=== PATIENT | female | born 1975 | race Caucasian/White ===

== ENCOUNTER 2019-12-19 07:55 | Emergency (ER) | payer OTHER ==
[2019-12-19 08:10] VITALS: BP 147/92; PULSE 71
--- NOTE | 2019-12-19 08:15 | EDM.PDOC ---
ED HPI GENERAL MEDICAL PROBLEM - General Chief Complaint: Neurological Problem Stated Complaint: DIZZY Time Seen by Provider: 12/19/19 08:14 Source of Information: Reports: Patient History Limitations: Reports: No Limitations - History of Present Illness INITIAL COMMENTS - FREE TEXT/NARRATIVE: pt arrived with a history of geting up this am and feeling like she was going to pass out. She did not feel like the room was whirling. She has had vertigo in the past and this did seem different. Onset: Today, Sudden, Other (pt got up with the symptoms. ) Duration: Hour(s): Location: Reports: Head, Other (pt has no visual symptoms. she has a low grade headache/ ) Associated Symptoms: Reports: Diaphoresis, Weakness, Other (pt felt like she was going to pass out. ) - Related Data Allergies Allergy/AdvReac Type Severity Reaction Status Date / Time amoxicillin Allergy Cannot Verified 12/22/19 08:41 Remember erythromycin lactobionate Allergy Rash Verified 12/22/19 08:41 [From Erythrocin] Penicillins Allergy Rash Verified 12/22/19 08:41 Home Meds: Home Meds Ibuprofen [Motrin] 600 mg PO ASDIRECTED PRN 02/12/15 [History] Meclizine HCl 1 tab PO ASDIRECTED PRN 12/19/19 [History] ED ROS GENERAL - Review of Systems Review Of Systems: See Below Constitutional: Reports: Weakness, Diaphoresis HEENT: Reports: No Symptoms Respiratory: Reports: No Symptoms Cardiovascular: Reports: Other (pt has not had chest pain. ) Endocrine: Reports: No Symptoms GI/Abdominal: Reports: No Symptoms : Reports: No Symptoms Musculoskeletal: Reports: No Symptoms Skin: Reports: No Symptoms Neurological: Reports: Dizziness, Other (pt had the sensation of passing out. ) ED EXAM, NEURO - Physical Exam Exam: See Below Text/Narrative:: pt arrived feeling weak and like she was going to pass out. She was very diaophoretic at the time. She did not have chest pain. Exam Limited By: No Limitations General Appearance: Alert, Anxious, Other (pale appearing. pupils are equal and reactive. ) Ears: Normal TMs Nose: Normal Inspection Throat/Mouth: Normal Inspection Head Exam: Atraumatic Neck: Normal Inspection Respiratory/Chest: No Respiratory Distress Cardiovascular: Regular Rate, Rhythm GI/Abdominal: Soft, Non-Tender (Female) Exam: Deferred Rectal (Female) Exam: Deferred Neurological: Alert Back Exam: Normal Inspection Extremities: Normal Inspection Psychiatric: Normal Affect Course - Vital Signs Last Recorded V/S: Last Vital Signs Temp 36.2 C 12/19/19 08:09 Pulse 71 12/19/19 08:09 Resp 16 12/19/19 08:09 BP 147/92 H 12/19/19 08:09 Pulse Ox 99 12/19/19 08:09 Orthostatic Blood Pressure [ 129/88 Standing] Orthostatic Blood Pressure [ 143/92 Sitting] Orthostatic Blood Pressure [ 140/82 Supine] - Orders/Labs/Meds Labs: Laboratory Tests 12/19/19 12/19/19 12/19/19 Range/Units 08:19 08:19 08:24 WBC 7.7 (4.5-11.0) K/uL RBC 4.46 (3.30-5.50) M/uL Hgb 14.3 (12.0-15.0) g/dL Hct 43.9 (36.0-48.0) % MCV 98 (80-98) fL MCH 32 H (27-31) pg MCHC 33 (32-36) % Plt Count 261 (150-400) K/uL Neut % (Auto) 56 (36-66) % Lymph % (Auto) 33 (24-44) % [place] % (Auto) 8 H (2-6) % Eos % (Auto) 2 (2-4) % Baso % (Auto) 1 (0-1) % Sodium 138 L (140-148) mmol/L Potassium 4.4 (3.6-5.2) mmol/L Chloride 105 (100-108) mmol/L Carbon Dioxide 23 (21-32) mmol/L Anion Gap 14.4 H (5.0-14.0) mmol/L BUN 17 (7-18) mg/dL Creatinine 1.0 (0.6-1.0) mg/dL Est Cr Clr Drug Dosing 71.16 mL/min Estimated GFR (MDRD) > 60 (>60) Glucose 86 (74-106) mg/dL Calcium 8.4 L (8.5-10.1) mg/dL Total Bilirubin 0.3 (0.2-1.0) mg/dL AST 19 (15-37) U/L ALT 22 (12-78) U/L Alkaline Phosphatase 76 (46-116) U/L Troponin I (0.000-0.056) ng/mL Total Protein 7.0 (6.4-8.2) g/dL Albumin 3.6 (3.4-5.0) g/dL Globulin 3.4 (2.3-3.5) g/dL Albumin/Globulin Ratio 1.1 L (1.2-2.2) Urine Color Yellow (YELLOW) Urine Appearance Clear (CLEAR) Urine pH 5.5 (5.0-8.0) Ur Specific [place] 1.025 (1.008-1.030) Urine Protein Negative (NEGATIVE) mg/dL Urine Glucose (UA) Negative (NEGATIVE) mg/dL Urine Ketones Negative (NEGATIVE) mg/dL Urine Occult Blood Small H (NEGATIVE) Urine Nitrite Negative (NEGATIVE) Urine Bilirubin Negative (NEGATIVE) Urine Urobilinogen 0.2 (0.2-1.0) EU/dL Ur Leukocyte Esterase Negative (NEGATIVE) Urine RBC 0-5 (0-5) Urine WBC Not seen (0-5) Ur Epithelial Cells Moderate Amorphous Sediment Not seen Urine Bacteria Moderate Urine Mucus Not seen 12/19/19 Range/Units 09:03 WBC (4.5-11.0) K/uL RBC (3.30-5.50) M/uL Hgb (12.0-15.0) g/dL Hct (36.0-48.0) % MCV (80-98) fL MCH (27-31) pg MCHC (32-36) % Plt Count (150-400) K/uL Neut % (Auto) (36-66) % Lymph % (Auto) (24-44) % [place] % (Auto) (2-6) % Eos % (Auto) (2-4) % Baso % (Auto) (0-1) % Sodium (140-148) mmol/L Potassium (3.6-5.2) mmol/L Chloride (100-108) mmol/L Carbon Dioxide (21-32) mmol/L Anion Gap (5.0-14.0) mmol/L BUN (7-18) mg/dL Creatinine (0.6-1.0) mg/dL Est Cr Clr Drug Dosing mL/min Estimated GFR (MDRD) (>60) Glucose (74-106) mg/dL Calcium (8.5-10.1) mg/dL Total Bilirubin (0.2-1.0) mg/dL AST (15-37) U/L ALT (12-78) U/L Alkaline Phosphatase (46-116) U/L Troponin I < 0.017 (0.000-0.056) ng/mL Total Protein (6.4-8.2) g/dL Albumin (3.4-5.0) g/dL Globulin (2.3-3.5) g/dL Albumin/Globulin Ratio (1.2-2.2) Urine Color (YELLOW) Urine Appearance (CLEAR) Urine pH (5.0-8.0) Ur Specific [place] (1.008-1.030) Urine Protein (NEGATIVE) mg/dL Urine Glucose (UA) (NEGATIVE) mg/dL Urine Ketones (NEGATIVE) mg/dL Urine Occult Blood (NEGATIVE) Urine Nitrite (NEGATIVE) Urine Bilirubin (NEGATIVE) Urine Urobilinogen (0.2-1.0) EU/dL Ur Leukocyte Esterase (NEGATIVE) Urine RBC (0-5) Urine WBC (0-5) Ur Epithelial Cells Amorphous Sediment Urine Bacteria Urine Mucus Meds: Medications Discontinued Medications Generic Name Dose Route Start Last Admin Trade Name Freq PRN Reason Stop Dose Admin Sodium Chloride 1,000 mls @ 999 mls/hr 12/19/19 09:00 12/19/19 09:51 Normal Saline IV 999 mls/hr ASDIRECTED [facility] Administration - Re-Assessments/Exams Free Text/Narrative Re-Assessment/Exam: 12/19/19 10:20 pt had an episode this am where she felt like she was going to pass out. She does smoke 1/2 pack daily, she has a family history of a father who had a [place] in the 60s. She states her weekend was relaxing and she ate and drank normally. She does appear to have milsd dehydration. When she had the episode she was very diaphoretic. Her trop was normal. Her ekg shows poor R progression anteriorly. 12/19/19 10:23 Departure - Departure Time of Disposition: 10:24 Disposition: Home, Self-Care 01 Condition: Fair Clinical Impression: Diaphoresis, Near syncope, Dehydration - Discharge Information Instructions: Near-Syncope, [id number], Dehydration, Adult, [id number] Referrals: Judi Velasquez PA-C [Primary Care Provider] - Forms: ED Department Discharge Care Plan Goals: rtc for a exercise cardiolyte, push fluids. rtc if further symptoms. follow up with regular Sepsis Event Note - Focused Exam Date Exam was Performed: 12/22/19 Time Exam was Performed: 19:21
[2019-12-19] MEDS ORDERED: Sodium Chloride 0.9% 1,000 ML IV SCH (09:00)
--- NOTE | 2019-12-19 09:55 | CRLCT ---
INDICATION: Near syncope. TECHNIQUE: The head was scanned from the foramen magnum to the vertex without contrast. Brain and bone windows were reviewed. Coronal reformatted images were generated. FINDINGS: The ventricles and sulci are normal. No mass effect or midline shift. No intraparenchymal hemorrhage or hematoma. No extra-axial fluid collections. Good bell-white matter differentiation. Calvarium is intact. Visualized mastoid air cells and paranasal sinuses are unremarkable. IMPRESSION: No acute intracranial abnormality. Please note that all CT scans at this facility use dose modulation, iterative reconstruction, and/or weight-based dosing when appropriate to reduce radiation dose to as low as reasonably achievable. Dictated by Wojciech Finney MD @ Dec 19 2019 9:50AM Signed by Dr. Wojciech Finney @ Dec 19 2019 9:53AM
== END 2019-12-19 10:52 | disposition home or self-care (01) ==
LOC: JP.ED 07:55
DX: E86.0 Dehydration (principal); R61 Generalized hyperhidrosis; Z88.0 Allergy status to penicillin; Z88.1 Allergy status to other antibiotic agents
CPT/HCPCS: 36415; 70450; 80053; 81001; 84484; 85025; 87086; 93005; 96360; 99284; J7030

== ENCOUNTER 2025-09-11 07:58 | Day surgery (SDC) | payer OTHER ==
[~2025-09-11 07:58] MED LIST: Midazolam 1 MG/ML 2 ML SDV ONE; Propofol 200 MG/20 ML SDV ONE; fentaNYL 100 MCG/2 ML SDV ONE
[2025-09-11] MEDS: Lactated Ringers 1,000 ML IV SCH (08:44)
[2025-09-11 11:08] VITALS: BP 118/86; PULSE 78
== END 2025-09-11 11:12 | disposition home or self-care (01) ==
LOC: JP.SDS 07:58
PROVIDERS: ATTEND Surgery
DX: Z12.11 Encounter for screening for malignant neoplasm of colon (principal); Z88.0 Allergy status to penicillin; Z88.1 Allergy status to other antibiotic agents; F17.210 Nicotine dependence, cigarettes, uncomplicated
CPT/HCPCS: 00812; 45378; J2250; J2704; J3010; J7120